=== PATIENT | female | born 1985 | race Caucasian/White ===

== ENCOUNTER 2022-06-06 13:17 | Emergency (ER) | payer OTHER ==
[~2022-06-06] VITALS: Ht 160 cm; Wt 59.0 kg
== END 2022-06-06 17:36 | disposition home or self-care (01) ==
LOC: ER 13:17
DX: Z33.1 Pregnant state, incidental (principal); R10.2 Pelvic and perineal pain

== ENCOUNTER 2022-07-18 10:52 | Outpatient (CLI) | payer OTHER | END 2022-07-18 12:14 | disposition home or self-care (01) | LOC: PRENATAL 10:52 | PROVIDERS: ATTEND Obstetrics & Gynecology Maternal & Fetal Medicine | DX: O36.80X0 Pregnancy with inconclusive fetal viability, not applicable or unspecified (principal); O09.529 Supervision of elderly multigravida, unspecified trimester; Z3A.11 11 weeks gestation of pregnancy ==

== ENCOUNTER 2022-09-18 13:33 | Outpatient (CLI) | payer OTHER | END 2022-09-18 14:55 | disposition home or self-care (01) | LOC: PRENATAL 13:33 | PROVIDERS: ATTEND Obstetrics & Gynecology Maternal & Fetal Medicine | DX: O35.9XX0 Maternal care for (suspected) fetal abnormality and damage, unspecified, not applicable or unspecified (principal); O35.3XX0 Maternal care for (suspected) damage to fetus from viral disease in mother, not applicable or unspecified; O09.529 Supervision of elderly multigravida, unspecified trimester; Z3A.20 20 weeks gestation of pregnancy ==

== ENCOUNTER 2022-12-12 09:51 | Outpatient (CLI) | payer OTHER | END 2022-12-12 10:51 | disposition home or self-care (01) | LOC: PRENATAL 09:51 | PROVIDERS: ATTEND Obstetrics & Gynecology Maternal & Fetal Medicine | DX: O26.849 Uterine size-date discrepancy, unspecified trimester (principal); O36.8199 Decreased fetal movements, unspecified trimester, other fetus; O09.529 Supervision of elderly multigravida, unspecified trimester; Z3A.32 32 weeks gestation of pregnancy ==

== ENCOUNTER → 2023-01-21 | Outpatient (CLI) | payer OTHER | END | disposition home or self-care (01) | LOC: NST 13:40 | PROVIDERS: ATTEND Obstetrics & Gynecology | DX: Z34.83 Encounter for supervision of other normal pregnancy, third trimester (principal) ==

== ENCOUNTER 2023-01-25 10:22 | Inpatient (IN) | payer OTHER ==
[~2023-01-25] VITALS: Ht 160 cm; Wt 63.5 kg
[2023-01-28] MEDS ORDERED: PRENATAL TABLE1 EAC1 PO (17:50)
[2023-01-28] MEDS ORDERED: LOVENOX40 MG/0.4 SUBCUTANEO (17:50)
[2023-01-28] MEDS ORDERED: CHILDREN'S ASPI81 MG PO (17:50)
[2023-01-28] MEDS ORDERED: VITAMIN D310 MCG/1 M PO (17:51)
[2023-01-28] MEDS ORDERED: MAGNESIUM100 MG PO (17:51)
== END 2023-01-30 15:41 | disposition home or self-care (01) | DRG 807 ==
LOC: OB/GYN 01-28 17:11 → LDR 01-28 17:11 → OB/GYN 01-28 21:39
PROVIDERS: ADMIT Student in an Organized Health Care Education/Training Program; ATTEND Student in an Organized Health Care Education/Training Program
PROC: 10E0XZZ Delivery of Products of Conception, External Approach (ICD-10-PCS; principal; 2023-01-28)
PROC: 4A1HXCZ Monitoring of Products of Conception, Cardiac Rate, External Approach (ICD-10-PCS; 2023-01-28)
DX: O80 Encounter for full-term uncomplicated delivery (principal); Z37.0 Single live birth; Z3A.39 39 weeks gestation of pregnancy; Z20.822 Contact with and (suspected) exposure to COVID-19